=== PATIENT | male | born 2000 | race African-American/Black ===

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

== ENCOUNTER 2022-03-12 07:43 | Emergency (ER) | payer MEDICAID, OTHER | END 2022-03-12 11:37 | disposition home or self-care (01) | LOC: JD.ED 07:43 | DX: K59.00 Constipation, unspecified (principal) | CPT/HCPCS: 36415; 74019; 74019-26; 80053; 85025; 99283 ==

== ENCOUNTER 2022-07-07 10:29 | Emergency (ER) | payer MEDICAID ==
[2022-07-07 12:01] LABS: CORONAVIRUS COVID-19 NAA POSITIVE (NEGATIVE)
== END 2022-07-07 13:27 | disposition home or self-care (01) ==
LOC: JD.ED 10:29
DX: U07.1 COVID-19 (principal)
CPT/HCPCS: 0240U; 99283

== ENCOUNTER 2024-08-15 09:05 | Emergency (ER) | payer MEDICAID ==
[2024-08-15] MEDS ORDERED: Sodium Chloride 0.9% 10 ML Syringe FLUSH PRN (09:23)
[2024-08-15] MEDS: Ketorolac 30 MG/ML SDV IVPUSH ONE (09:40)
[2024-08-15] MEDS: diphenhydrAMINE 50 MG/ML SDV IVPUSH ONE (09:41)
[2024-08-15] MEDS: Metoclopramide 10 MG/2 ML SDV IVPUSH ONE (09:45)
[2024-08-15 09:46] LABS: BASOPHILS PERCENT AUTO 0.6 % (0.0-1.0); EOSINOPHILS ABSOLUTE AUTO 0.1 K/mm3 (0.0-0.4); EOSINOPHILS PERCENT AUTO 1.4 % (0.0-6.0); HEMATOCRIT 47.3 % (42.0-52.0); HEMOGLOBIN 16.2 gm/dl (14.0-18.0); IMMATURE GRAN ABSOLUTE AUTO 0.01 K/mm3 (0.00-0.05); IMMATURE GRAN PERCENT AUTO 0.3 % (0.0-0.4); LYMPHOCYTES ABSOLUTE AUTO 1.5 K/mm3 (1.0-4.8); LYMPHOCYTES PERCENT AUTO 42.1 % (24.0-44.0); MEAN CORPUSCULAR HEMOGLOBIN 31.5 pg (28.0-32.0); MEAN CORPUSCULAR HGB CONC 34.2 g/dl (32.0-36.0); MEAN CORPUSCULAR VOLUME 91.8 fl (83.0-99.0); MEAN PLATELET VOLUME 9.9 fl (9.4-12.4); MONOCYTES ABSOLUTE AUTO 0.3 K/mm3 (0.0-0.8); MONOCYTES PERCENT AUTO 8.6 % (0.0-8.0); NEUTROPHILS ABSOLUTE AUTO 1.7 K/mm3 (1.8-7.7); PLATELET COUNT,PLT 241 K/mm3 (150-400); RED BLOOD CELL COUNT 5.15 M/mm3 (4.52-5.90); WHITE BLOOD CELL COUNT,WBC 3.61 K/mm3 (3.9-11.3)
[2024-08-15 10:07] LABS: INR 1.05; PROTHROMBIN TIME 11.1 SECONDS (9.7-12.0)
[2024-08-15 10:17] LABS: A/G RATIO 1.4 (1-2); ALBUMIN 4.5 g/dl (3.4-5.0); ANION GAP 17.6 (5-15); BILIRUBIN TOTAL 0.9 mg/dL (0.2-1.0); BUN/CREATININE RATIO 13.6 (14-18); CALCIUM 9.2 mg/dL (8.5-10.1); CREATININE 1.1 mg/dL (0.7-1.3); EST CRCL DRUG DOSING (CG) 97.52 mL/min; POTASSIUM,K 4.6 mEq/L (3.5-5.1); PROTEIN TOTAL,TP 7.8 g/dl (6.4-8.2)
== END 2024-08-15 11:16 | disposition home or self-care (01) ==
LOC: JD.ED 09:05
DX: G43.909 Migraine, unspecified, not intractable, without status migrainosus (principal); R04.0 Epistaxis
CPT/HCPCS: 36415; 70450; 80053; 85025; 85610; 85730; 96374; 96375; 99284; J1200; J1885; J2765